=== PATIENT | male | born 1960 | race Caucasian/White ===

== ENCOUNTER 2018-01-17 10:30 | Outpatient (RCR) | payer OTHER, SELFPAY | END 2018-01-17 10:31 | disposition home or self-care (01) | LOC: PT 10:30 | PROVIDERS: Visit Provider Physician Assistant Medical | DX: M47.12 Other spondylosis with myelopathy, cervical region (principal) | CPT/HCPCS: 97110; 97112; 97163 ==

== ENCOUNTER 2018-01-17 11:00 | Outpatient (RCR) | payer OTHER, SELFPAY | END 2018-01-17 11:01 | disposition home or self-care (01) | LOC: PT 11:00 | PROVIDERS: Visit Provider Orthopaedic Surgery Orthopaedic Surgery of the Spine | DX: M47.12 Other spondylosis with myelopathy, cervical region (principal) | CPT/HCPCS: 97010; 97014; 97110; 97140; 97163; 97164; G0283 ==